=== PATIENT | male | born 1960 | race Caucasian/White ===

== ENCOUNTER 2021-03-31 11:19 | Day surgery (SDC) | payer BC ==
[~2021-03-31 11:19] MED LIST: Iopamidol 370 76% 100 ML VIAL ONE
[2021-03-31] MEDS ORDERED: Aspirin Chewable 81 MG TAB ONE (11:41)
[2021-03-31 11:44] LABS: #Basophils 0.1 thou/uL (0.0-0.2); #Eosinphils 0.4 thou/uL (0.0-0.7); #Lymphocytes 3.3 thou/uL (1.20-3.40); #Monocytes 0.8 thou/uL (0.11-0.59); #Neutrophils 6.7 thou/uL (1.40-6.50); %Basophils 1.1 % (0.0-1.0); %Eosinophils 3.2 % (0.0-10.0); %Lymphocytes 29.4 % (21.0-51.0); %Monocytes 6.9 % (0.0-10.0); %Neutrophils 59.4 % (42.0-75.0); Hemoglobin 16.1 g/dL (14.0-18.0); Mean Corpuscular HGB CONC 32.8 g/dL (32.0-36.0); Mean Corpuscular Hemoglobin 32.8 pg (27.0-31.0); Mean Corpuscular Volume 99.9 fL (78.0-98.0); Mean Platelet Volume 8.3 fL (7.4-10.4); Platelet Count 220 thou/uL (130-400); RBC Distribution Width 11.8 % (11.5-14.5); Red Blood Cell (RBC) Count 4.92 mill/uL (4.70-6.10); White Blood Cell (WBC) Count 11.2 thou/uL (4.8-10.8)
[2021-03-31 12:13] LABS: ALT (SGPT) 58 U/L (8-55); AST (SGOT) 41 U/L (5-34); Albumin 4.4 g/dL (3.5-5.0); Alkaline Phosphatase 48 U/L (40-110); Anion Gap 15 mmol/L (10-20); BUN (Urea Nitrogen) 13 mg/dL (8.4-25.7); Bilirubin, Total 0.7 mg/dL (0.2-1.2); Calc. Creatinine Clearance 0 mL/min (70-130); Calcium 10.1 mg/dL (7.8-10.44); Carbon Dioxide 23 mmol/L (22-29); Chloride 103 mmol/L (98-107); Globulin 3.8 g/dL (2.4-3.5); Glucose 108 mg/dL (70-105); Lipase 27 U/L (8-78); Protein, Total 8.2 g/dL (6.0-8.3); Sodium 137 mmol/L (136-145)
[2021-03-31] MEDS ORDERED: Nitroglycerin 100MG/250ML BOT 250 ML ONE (12:13)
[2021-03-31] MEDS ORDERED: Heparin 10,000 UNITS/ 10 ML VIAL ONE (12:13)
[2021-03-31] MEDS ORDERED: Verapamil 5 MG/2 ML VIAL ONE (12:13)
[2021-03-31] MEDS ORDERED: Lidocaine 1% (PF) 30 ML VIAL ONE (12:13)
[2021-03-31] MEDS ORDERED: Acetaminophen 325 MG TAB PO PRN (12:39)
[2021-03-31] MEDS ORDERED: Ondansetron PF 4 MG/2 ML Vial IVP PRN (12:39)
[2021-03-31] MEDS ORDERED: hydrALAZINE 20 MG/ML VIAL SLOW IVP PRN (12:43)
[2021-03-31] MEDS ORDERED: Fentanyl 100 MCG/2 ML VIAL ONE (13:07)
[2021-03-31] MEDS ORDERED: Adenosine 6 MG/2 ML VIAL ONE (13:07)
[2021-03-31] MEDS ORDERED: Midazolam HCl 2 mg/2 ml Vial ONE (13:07)
[2021-03-31] MEDS ORDERED: Carvedilol 6.25 MG TAB ONE (15:19)
[2021-03-31 15:22] LABS: Lactic Acid 1.4 mmol/L (0.5-2.2)
[2021-03-31] MEDS ORDERED: Carvedilol 6.25 MG TAB PO SCH ×2 (15:30→21:00)
[2021-03-31 16:01] LABS: Critical Call Chem Troponin I RESULT DECREASING; Troponin I 9.443 ng/mL (< 0.028)
[2021-03-31] MEDS ORDERED: Atorvastatin Calcium 40 MG TAB PO SCH (21:00)
[2021-03-31] MEDS ORDERED: Lisinopril 20 MG TAB PO SCH (21:00)
[2021-04-01] MEDS ORDERED: Lisinopril 20 MG TAB PO SCH (09:00)
[2021-04-02] MEDS ORDERED: Enoxaparin Sodium 40 MG/0.4 ML SYRINGE SC SCH (09:00)
== END 2021-03-31 16:37 | disposition short-term general hospital (02) ==
LOC: ERS 11:19 → SDC 13:42
PROVIDERS: ATTEND Internal Medicine Cardiovascular Disease
DX: I25.10 Atherosclerotic heart disease of native coronary artery without angina pectoris (principal); I21.4 Non-ST elevation (NSTEMI) myocardial infarction; I10 Essential (primary) hypertension; K21.9 Gastro-esophageal reflux disease without esophagitis; E78.5 Hyperlipidemia, unspecified; F17.210 Nicotine dependence, cigarettes, uncomplicated; I73.9 Peripheral vascular disease, unspecified; E78.00 Pure hypercholesterolemia, unspecified; E66.01 Morbid (severe) obesity due to excess calories; Z68.41 Body mass index [BMI] 40.0-44.9, adult; Z79.82 Long term (current) use of aspirin; Z79.899 Other long term (current) drug therapy
CPT/HCPCS: 36415; 71045; 80053; 82553; 83605; 83690; 83880; 84443; 84484; 85025; 93005; 93010; 93454; 99152; J0153; J1644; J2001; J2250; J3010; Q9967